=== PATIENT | female | born 1945 | race African-American/Black ===

== ENCOUNTER 2016-10-31 08:02 | Day surgery (SDC) | payer OTHER ==
[2016-10-27 17:23] VITALS: BMI 38.6
--- NOTE | 2016-10-31 06:19 | HP ---
History & Physical Update - History History: No Change - Physical Physical: No Change - Assessment Assessment: No Change - Plan Plan: No Change
[~2016-10-31 08:02] MED LIST: EPINEPHrine/PF 1 MG/1 ML (1:1,000) AMPULE SQ ONE; TOBRAMYCIN 0.3% OPHTH OINT 3.5 GM OD ONE
[2016-10-31] MEDS ORDERED: CYCLOPENTOLATE HCL 1% OPHTH SOLN 2 ML BOTTLE ONE (08:15)
[2016-10-31] MEDS ORDERED: MOXIFLOXACIN HCL 0.5% OPHTHALMIC 3 ML BOTTLE ONE (08:15)
[2016-10-31] MEDS ORDERED: PHENYLEPHRINE 2.5% OPHTH SOLN 15 ML BOTTLE ONE (08:15)
[2016-10-31] MEDS ORDERED: TROPICAMIDE 1% OPHTH SOLN 15 ML BOTTLE ONE (08:15)
[2016-10-31 08:29] VITALS: TEMP 97.5
[2016-10-31] MEDS: PHENYLEPHRINE 2.5% OPHTH SOLN 15 ML BOTTLE OP SCH ×2 (09:25→09:30)
[2016-10-31] MEDS: TROPICAMIDE 1% OPHTH SOLN 15 ML BOTTLE OP SCH ×2 (09:25→09:30)
[2016-10-31] MEDS: CYCLOPENTOLATE HCL 1% OPHTH SOLN 2 ML BOTTLE OP SCH ×2 (09:25→09:30)
[2016-10-31] MEDS: MOXIFLOXACIN HCL 0.5% OPHTHALMIC 3 ML BOTTLE OP SCH ×2 (09:25→09:30)
[2016-10-31] MEDS ORDERED: LIDOCAINE HCL/PF 2% SDV 5ML VIAL ONE (09:31)
[2016-10-31] MEDS ORDERED: TETRACAINE 0.5% OPHTH SOLN 2 ML BOTTLE TP ONE (09:59)
[2016-10-31] MEDS ORDERED: LIDOCAINE HCL/PF 2% SDV 5ML VIAL INF ONE (10:02)
[2016-10-31] MEDS ORDERED: BUPIVACAINE HCL/PF 0.75% 10 ML VIAL RB ONE (10:02)
[2016-10-31] MEDS ORDERED: LIDOCAINE HCL 1% PRESERVATIVE FREE - 30ML VIAL IO ONE (10:15)
[2016-10-31] MEDS ORDERED: TRYPAN BLUE 0.5 ML DISP.SYRIN ONE (10:20)
[2016-10-31] MEDS ORDERED: TRYPAN BLUE 0.5 ML DISP.SYRIN IO ONE (10:21)
[2016-10-31] MEDS ORDERED: CHONDROITIN SU A/HYALUR SOD 1 KIT IO ONE (10:22)
[2016-10-31] MEDS ORDERED: LABETALOL HCL 5 MG/1 ML (100MG/20 ML VIAL) ONE (10:25)
[2016-10-31] MEDS ORDERED: TOBRAMYCIN 0.3% OPHTH OINT 3.5 GM OD ONE (10:57)
[2016-10-31] MEDS ORDERED: EPINEPHrine/PF 1 MG/1 ML (1:1,000) AMPULE SQ ONE (10:57)
[2016-10-31 12:15] VITALS: BP 140/60
[2016-10-31 13:46] VITALS: PULSE 60
--- NOTE | 2016-11-01 06:12 | OP ---
DATE OF OPERATION: 10/31/2016 SURGEON: Coy Rush MD PREOPERATIVE DIAGNOSIS: Cataract, right eye. OPERATION: Phacoemulsification and intraocular lens implantation, right eye. POSTOPERATIVE DIAGNOSIS: Cataract, right eye. ANESTHESIA: Local with intravenous sedation.. COMPLICATIONS: None. BLOOD LOSS: None. SPECIMEN: None. BRIEF HISTORY: The patient is a 71-year-old woman with a past medical history of diabetes who presented with decreased vision in the right eye down to barely counting fingers due to 2-3+ nuclear sclerotic lens with a diffuse posterior subcapsular cataract. After the risks, benefits, and alternatives to cataract surgery were discussed with the patient, she consented to cataract surgery for the right eye. DESCRIPTION OF PROCEDURE: The patient was brought to the operating room and administered retrobulbar block after receiving intravenous sedation. She was then prepped and draped in the usual sterile fashion. An eyelid speculum was inserted in the right eye. A paracentesis was made, and the anterior chamber was inflated with nonpreserved lidocaine. This was followed by injection of air, trypan blue dye , and Viscoat due to the poor red reflex. Due to the poorly dilating pupil at this point, it was determined to place 4 iris hooks in order to enlarge and stabilize the pupil. A groove was made in the temporal clear cornea which was tunneled forward with a crescent blade. The anterior chamber was entered with a 2.75 keratome. The cystotome was used to make an incision at the center of the capsule, and a continuous curvilinear capsulorrhexis was created. The lens was hydrodissected and hydrodelineated until it was found to rotate freely within the capsular bag. Phacoemulsification was then used to remove the lens in its entirety. Irrigation and aspiration were used to remove residual cortical material. The anterior chamber and capsular bag were reinflated with Provisc, and a 25.0 diopter SN60WF AcrySof intraocular lens was injected into the capsular bag using the Brandywine injector. The lens was dialed into place using the Sinskey hook. Irrigation and aspiration were used to remove residual viscoelastic. The wound was stromally hydrated until it was found to be watertight. The 4 previously placed iris hooks were removed without incident. The wound was rechecked and found to be watertight, and the eye was at an appropriate pressure. The eyelid speculum was removed from the eye and TobraDex ointment and a patch and shield were placed over the right eye. The patient was transferred to the recovery room in stable condition and will follow up tomorrow. COY RUSH M.D. [id number] MTDD
== END 2016-10-31 13:56 | disposition home or self-care (01) ==
LOC: JASU-SURG 08:02
PROVIDERS: ATTEND Ophthalmology
PROC: 08RJ3JZ Replacement of Right Lens with Synthetic Substitute, Percutaneous Approach (ICD-10-PCS; principal; 2016-10-31 10:00)
DX: H25.11 Age-related nuclear cataract, right eye (principal); H57.04 Mydriasis